=== PATIENT | male | born 1940 | race Caucasian/White ===

== ENCOUNTER 2021-05-07 09:18 | Day surgery (SDC) | payer MEDICARE ==
[~2021-05-07 09:18] MED LIST: ACIT10CA PO; ALLO100 PO; AMLO5 PO; ATEN50 PO; BUME2 PO; CALCPOTTC TOP; CETI5 PO; CLOP75 PO; DABI150C; DABI150C PO; DIGO.125 PO; DILT120 PO; DILT60 PO; DILTIAZEM 24HR240 MG PO; Diovan40 MG PO; ELIQUIS5 MG PO; ESOM20; ETAN50I INJ; FURO40 PO; GLIP5 PO; HYDPAM50 PO; K-Dur 20 meq T20 MEQ PO; LOSA25 PO; MEN PHOR ANTI I TP; METF500 PO; METF500C PO; METO25 PO; METO50ER PO; POTCHL10ER PO; PRED10 PO; SIMV10 PO
== END 2021-05-07 09:45 | disposition home or self-care (01) ==
LOC: ORSCSDS 09:18
DX: K22.70 Barrett's esophagus without dysplasia (principal); Z53.9 Procedure and treatment not carried out, unspecified reason
CPT/HCPCS: J2704; J7120

== ENCOUNTER 2021-05-23 08:57 | Day surgery (SDC) | payer MEDICARE ==
[~2021-05-23] VITALS: Ht 177.8 cm; Wt 105.4 kg
[~2021-05-23 08:57] MED LIST changes: +Crestor20 MG PO; +GALA4 PO; +HYDCHL25 PO; +LANOXIN125 MCG PO; +LOSA50 PO; +OMEP20ER PO; +XARELTO20 MG PO
== END 2021-05-23 11:10 | disposition home or self-care (01) ==
LOC: ORSCSDS 08:57
PROVIDERS: Internal Medicine Gastroenterology
PROC: 0DB78ZX Excision of Stomach, Pylorus, Via Natural or Artificial Opening Endoscopic, Diagnostic (ICD-10-PCS; principal; 2021-05-23 10:30)
PROC: 0DB58ZX Excision of Esophagus, Via Natural or Artificial Opening Endoscopic, Diagnostic (ICD-10-PCS; principal; 2021-05-23 10:30)
DX: K22.70 Barrett's esophagus without dysplasia (principal); C15.5 Malignant neoplasm of lower third of esophagus; R13.14 Dysphagia, pharyngoesophageal phase; Z87.891 Personal history of nicotine dependence; E11.9 Type 2 diabetes mellitus without complications; I10 Essential (primary) hypertension; E78.5 Hyperlipidemia, unspecified; I48.0 Paroxysmal atrial fibrillation; I25.10 Atherosclerotic heart disease of native coronary artery without angina pectoris; F03.90 Unspecified dementia, unspecified severity, without behavioral disturbance, psychotic disturbance, mood disturbance, and anxiety; Z79.899 Other long term (current) drug therapy; Z79.84 Long term (current) use of oral hypoglycemic drugs; G47.33 Obstructive sleep apnea (adult) (pediatric)
CPT/HCPCS: 82947; 88305; 88342; J2704; J7120

== ENCOUNTER 2021-08-08 21:13 | Emergency (ER) | payer MEDICARE ==
[~2021-08-08] VITALS: Ht 177.8 cm; Wt 86.2 kg
[2021-08-08 23:07] LABS: Hematocrit 25.9 % (37.0-53.0); Hemoglobin 8.8 g/dL (13.5-17.5); Mean Corpuscular HGB 31.1 pg (26.0-34.0); Mean Corpuscular Volume 92 fL (80-100); Mean Platelet Volume 9.8 fL (9.1-12.4); NRBC ABSOLUTE 0.06 K/mm3 (0.00-0.02); NRBC Auto 1.8 /100 WBC (0.0-0.2); Platelet Count 135 K/mm3 (150-400); RDW Coefficient Variation 17.3 % (11.7-14.2); RDW Standard Deviation 55.8 fL (35.1-46.3); Red Blood Cell Count 2.83 M/mm3 (4.30-5.90); White Blood Cell Count 3.25 K/mm3 (4.00-11.30)
[2021-08-08 23:34] LABS: Alanine Aminotransfer (ALT/SGP 17 U/L (12-78); Albumin, Blood 2.6 g/dL (3.4-5.0); Albumin/Globulin Ratio 0.7 (0.8-1.8); Alk Phos 62 U/L (50-136); Anion Gap 9 mmol/L (6-16); Aspartate Aminotrans (AST/SGOT 8 U/L (12-37); Bilirubin, Total 0.5 mg/dL (0.1-1.0); Blood Urea Nitrogen 62 mg/dL (8-24); Bun/Creatinine Ratio 48.1 (12.0-20.0); CO2, Blood 22 mmol/L (21-32); Calcium, Blood 9.3 mg/dL (8.5-10.1); Chloride, Blood 105 mmol/L (98-108); Creatinine, Blood 1.29 mg/dL (0.60-1.20); Globulin, Blood 3.8 g/dL (2.2-4.0); Glomerular Filtration Rate 53 (60-); Glucose, Blood 380 mg/dL (70-99); Potassium, Blood 3.4 mmol/L (3.5-5.5); Sodium, Blood 136 mmol/L (136-145); Total Protein, Blood 6.4 g/dL (6.4-8.2); Troponin I <0.015 ng/mL (0.000-0.040)
[2021-08-09 00:16] LABS: BAND PERCENT MAN 37 % (0-8); BASOPHILS PERCENT MAN 0 % (0-2); EOSINOPHILS PERCENT MAN 0 % (0-6); LYMPHOCYTES ABSOLUTE MAN 0.09 K/mm3 (0.84-5.20); LYMPHOCYTES PERCENT MAN 3 % (21-46); METAMYELOCYTE ABSOLUTE MAN 0.09 K/mm3 (0.00-0.00); METAMYELOCYTE PERCENT MAN 3 % (0-0); MONOCYTES ABSOLUTE MAN 0.35 K/mm3 (0.16-1.47); MONOCYTES PERCENT MAN 11 % (4-13); MYELOCYTE ABSOLUTE MAN 0.13 K/mm3 (0.00-0.00); MYELOCYTE PERCENT MAN 4 % (0-0); NEUTROPHILS ABSOLUTE MAN 2.56 K/mm3 (1.96-9.15); SEG NEUTROPHILS PERCENT MAN 42 % (41-73); TOTAL CELLS COUNTED 100
== END 2021-08-09 05:00 | disposition home or self-care (01) ==
LOC: ER 21:13
PROVIDERS: Emergency Medicine
DX: E11.65 Type 2 diabetes mellitus with hyperglycemia (principal); F03.90 Unspecified dementia, unspecified severity, without behavioral disturbance, psychotic disturbance, mood disturbance, and anxiety; E86.0 Dehydration; C15.9 Malignant neoplasm of esophagus, unspecified; I48.91 Unspecified atrial fibrillation; I10 Essential (primary) hypertension; Z79.899 Other long term (current) drug therapy; Z79.84 Long term (current) use of oral hypoglycemic drugs
CPT/HCPCS: 71045; 80053; 80162; 83690; 83880; 84484; 85025; 99285-25; A9270; J7030

== ENCOUNTER 2021-08-16 15:49 | Inpatient (IN) | payer MEDICARE ==
[~2021-08-16] VITALS: Ht 177.8 cm; Wt 104.4 kg
[2021-08-16 16:34] LABS: PCO2 Arterial 40.3 mmHg (35-45); PO2 Arterial 82.1 mmHg (80-100)
[2021-08-16 16:37] LABS: pH Blood Arterial 6.83 (7.35-7.45)
[2021-08-16 16:58] LABS: Hematocrit 22.9 % (37.0-53.0); Hemoglobin 6.9 g/dL (13.5-17.5); Mean Corpuscular HGB 30.8 pg (26.0-34.0); Mean Corpuscular HGB Conc 30.1 g/dL (31.5-36.5); Mean Corpuscular Volume 102 fL (80-100); Mean Platelet Volume 10.5 fL (9.1-12.4); NRBC ABSOLUTE 0.44 K/mm3 (0.00-0.02); NRBC Auto 2.6 /100 WBC (0.0-0.2); Platelet Count 196 K/mm3 (150-400); RDW Coefficient Variation 18.5 % (11.7-14.2); RDW Standard Deviation 66.3 fL (35.1-46.3); Red Blood Cell Count 2.24 M/mm3 (4.30-5.90); White Blood Cell Count 17.25 K/mm3 (4.00-11.30)
[2021-08-16 17:13] LABS: Acetaminophen, Random 9.2 ug/mL (10.0-30.0); CPK Creatine Kinase 264 U/L (39-308); Creatine Kinase MB 9.7 ng/mL (0.0-3.6); Creatine Kinase MB Index 3.7 (0.0-4.0); Ethanol (Alcohol), Blood, Med <3 mg/dL; Salicylate <1.7 mg/dL (2.8-20.0); Troponin I 0.203 ng/mL (0.000-0.040)
[2021-08-16 17:21] LABS: Alanine Aminotransfer (ALT/SGP 50 U/L (12-78); Albumin, Blood 1.9 g/dL (3.4-5.0); Alk Phos 65 U/L (50-136); Anion Gap 24 mmol/L (6-16); Aspartate Aminotrans (AST/SGOT 56 U/L (12-37); Bilirubin, Total 0.4 mg/dL (0.1-1.0); Blood Urea Nitrogen 118 mg/dL (8-24); Bun/Creatinine Ratio 35.2 (12.0-20.0); CO2, Blood 9 mmol/L (21-32); Calcium, Blood 7.6 mg/dL (8.5-10.1); Chloride, Blood 109 mmol/L (98-108); Creatinine, Blood 3.35 mg/dL (0.60-1.20); Glomerular Filtration Rate 18 (60-); Glucose, Blood 554 mg/dL (70-99); Potassium, Blood 4.3 mmol/L (3.5-5.5); Sodium, Blood 142 mmol/L (136-145); Total Protein, Blood 3.9 g/dL (6.4-8.2)
[2021-08-16 17:22] LABS: Appearance, Urine Hazy (Clear); Bilirubin, Urine Neg (Neg); Blood, Urine 4+ (Neg); Color, Urine Yellow (P-Yellow); Glucose Qualitative, Urine 4+ (Neg); Ketones, Urine Neg (Neg); Leukocyte Esterase, Urine Neg (Neg); Nitrite, Urine Neg (Neg); Protein, Urine 3+ (Neg); Urobilinogen, Urine NORM (Normal)
[2021-08-16 17:33] LABS: BAND PERCENT MAN 12 % (0-8); BASOPHILS PERCENT MAN 0 % (0-2); EOSINOPHILS PERCENT MAN 0 % (0-6); LYMPHOCYTES ABSOLUTE MAN 0.17 K/mm3 (0.84-5.20); LYMPHOCYTES PERCENT MAN 1 % (21-46); METAMYELOCYTE ABSOLUTE MAN 0.86 K/mm3 (0.00-0.00); METAMYELOCYTE PERCENT MAN 5 % (0-0); MONOCYTES ABSOLUTE MAN 0.51 K/mm3 (0.16-1.47); MONOCYTES PERCENT MAN 3 % (4-13); MYELOCYTE ABSOLUTE MAN 0.69 K/mm3 (0.00-0.00); MYELOCYTE PERCENT MAN 4 % (0-0); SEG NEUTROPHILS PERCENT MAN 75 % (41-73); TOTAL CELLS COUNTED 100
[2021-08-16 17:40] LABS: Source, Urine Catheter
[2021-08-16 17:43] LABS: Bacteria Few /hpf; Renal Epithelial Rare /hpf (0-Rare); Squamous Epithelial Cells Few /hpf (Few); White Blood Cells, Urine 0-2 /hpf (0-5)
[2021-08-16 17:44] LABS: Granular Casts 0-2 /lpf (0)
--- NOTE | 2021-08-16 18:13 | NUR ---
Patient remains intubated with 8.0 ET and 27 cm at teeth with vent setting of Spon mod PS 5/40/5 and sats 97%. OG in place and is infusing Nephro 1.8 at 20 ml/hr goal and 30 ml/q4 water flushes. 18Fr Gutierrez output was only 100 mleven after Bumex gtt. Rectal tube 800 ml output dark brown stool. PICC line infusing Bumex at 4mg/hr increaed 2nd bag, Heparin 12 units/kg/hr, NS TKO. He continues to weep from groin area and LUE. Continue full turns to get off buttocks. He remaisn out of restraints and no UE movement. Nods yes and no to questions and trackas visually. Temp 99.3
[2021-08-16 18:17] LABS: Influenza A, PCR NEGATIVE (NEGATIVE); Influenza B, PCR NEGATIVE (NEGATIVE); Resp Syncytial Virus, PCR NEGATIVE (NEGATIVE); SARS-Cov-2 (COVID-19) PCR, MMC NEGATIVE (NEGATIVE)
[2021-08-16 19:50] LABS: pH Blood Venous 7.01 (7.34-7.37)
[2021-08-16 19:51] LABS: PO2 Venous 75.7 mmHg (38-42)
[2021-08-16 19:52] LABS: Base Excess Venous -18.4 mmol/L; Bicarbonate Venous 11.1 mmol/L (24.0-30.0)
[2021-08-16 20:54] LABS: Glucose, Blood 663 mg/dL (70-99)
[2021-08-16 23:16] LABS: Base Excess Venous -14.6 mmol/L; Bicarbonate Venous 12.9 mmol/L (24.0-30.0); PCO2 Venous 49.9 mmHg (38-42); PO2 Venous 28.1 mmHg (38-42)
[2021-08-16 23:17] LABS: pH Blood Venous 7.09 (7.34-7.37)
[2021-08-16 23:58] LABS: PCO2 Arterial 34.9 mmHg (35-45); PO2 Arterial 479 mmHg (80-100)
[2021-08-16 23:59] LABS: pH Blood Arterial 7.22 (7.35-7.45)
--- NOTE | 2021-08-17 01:47 | NUR ---
PATIENT TO ROOM AT 2210 PATIENT INTUBATED AND WITHDRAWS TO PAINFUL STIMULI, NO EYE OPENING, UNABLE TO FOLLOW COMMANDS. PATIENT ON VENT AC VC 18/440/7/85% WHEN HE ARRIVED TO THE ROOM, UNABLE TO GET ACCURATE 02 READINGS, VBG DONE AND VENT SETTING ADJUSTED, ABG WAS THEN DONE TO CONFIRM ACCURACY OG VBG, VENT SETTING THEN CHANGED AGAIN PER DOCTORS ORDERS DUE TO ABG RESULTS. VENT SETTINGS CURRENTLY AC VC 18/440/5/55%. RR 30s. EXP WHEEZE HEARD. AMP OF SODIUM BICARB GIVEN DUE TO ABG RESULTS PER HOSPITALIST. HR A.FIB 110-130s. LEVOPHED, VASO, AND CROW INF TO MAINTAIN BP >65. ALBUMIN GIVEN. 1 UNIT PRBCs GIVEN. IO REMOVED. NO OG IN PLACE DT SWELLING AND FAILED ATTEMPT IN ED. CALLED HOSPITALIST WITH [facility] RESULTS OF 408 CALLED TO HOSPITALIST. ORDERS FOR LANTUS. INCREASED FENTANYL DEPORTATION OFFICER TO 50 MCG/HR FOR PATIENT COMFORT. PATIENT SKIN COOL AND MOTTLING IN ALL EXTREMTIES AND UP TO MID CHEST. UPDATED ON PATIENT CONDITION. SEE SHIFT ASSESSMENT FOR MORE INFO.
[2021-08-17 03:54] LABS: Hematocrit 24.8 % (37.0-53.0); Hemoglobin 8.2 g/dL (13.5-17.5); Mean Corpuscular HGB 31.4 pg (26.0-34.0); Mean Corpuscular HGB Conc 33.1 g/dL (31.5-36.5); Mean Platelet Volume 9.3 fL (9.1-12.4); NRBC ABSOLUTE 0.43 K/mm3 (0.00-0.02); NRBC Auto 5.9 /100 WBC (0.0-0.2); Platelet Count 107 K/mm3 (150-400); RDW Coefficient Variation 17.9 % (11.7-14.2); RDW Standard Deviation 60.5 fL (35.1-46.3); Red Blood Cell Count 2.61 M/mm3 (4.30-5.90); White Blood Cell Count 7.34 K/mm3 (4.00-11.30)
[2021-08-17 03:57] LABS: Mean Corpuscular Volume 95 fL (80-100)
[2021-08-17 04:19] LABS: Albumin, Blood 2.6 g/dL (3.4-5.0); Albumin/Globulin Ratio 1.1 (0.8-1.8); Bilirubin, Total 1.9 mg/dL (0.1-1.0); Bun/Creatinine Ratio 36.4 (12.0-20.0); Calcium, Blood 7.4 mg/dL (8.5-10.1); Creatinine, Blood 3.46 mg/dL (0.60-1.20); Globulin, Blood 2.3 g/dL (2.2-4.0); Magnesium, Blood 2.3 mg/dL (1.6-2.4); Potassium, Blood 4.1 mmol/L (3.5-5.5); Total Protein, Blood 4.9 g/dL (6.4-8.2)
[2021-08-17 04:43] LABS: BAND PERCENT MAN 40 % (0-8); BASOPHILS PERCENT MAN 0 % (0-2); EOSINOPHILS PERCENT MAN 0 % (0-6); LYMPHOCYTES ABSOLUTE MAN 0.07 K/mm3 (0.84-5.20); LYMPHOCYTES PERCENT MAN 1 % (21-46); METAMYELOCYTE ABSOLUTE MAN 0.22 K/mm3 (0.00-0.00); METAMYELOCYTE PERCENT MAN 3 % (0-0); MONOCYTES ABSOLUTE MAN 0.14 K/mm3 (0.16-1.47); MONOCYTES PERCENT MAN 2 % (4-13); MYELOCYTE ABSOLUTE MAN 0.29 K/mm3 (0.00-0.00); MYELOCYTE PERCENT MAN 4 % (0-0); SEG NEUTROPHILS PERCENT MAN 50 % (41-73); TOTAL CELLS COUNTED 100
[2021-08-17 04:48] LABS: PO2 Arterial 64.1 mmHg (80-100); pH Blood Arterial 7.34 (7.35-7.45)
--- NOTE | 2021-08-17 06:47 | NUR ---
SHIFT SUMMARY PATIENT REMAINS INTUBATED AND WITHDRAWING TO PAINFUL STIMULI. MOVES ALL EXTREMETIES. FENTANYL URGENT CARE PHYSICIAN ASSISTANT INF 50 MCG/HR, AND PRN ATIVAN. UNABLE TO OBTAIN PROPER 02 SAT READING, ABG DONE FOR VENT TITRATION. VENT 18/440/5/55%, LUNGS CLEAR TO DIMINISHED. HR A. FIB 120s-130. LEVOPHED, VASO, AND CROW INF TO MAINTAIN MAP GREATER THAN 65. PATIENT IS MOTTLED IN ALL EXTREMETIES UP TO MID CHEST. CALLED [facility] TO HOSPITALIST AND ORDERS FOR LANTUS. PATIENT BEING KEPT UNDER 36 DEGREES CELCIUS. ARROYO DRAINING TO GRAVITY. BILATERAL WRIST RESTRAINTS IN PLACE. TURNED Q2 HOURS.
--- NOTE | 2021-08-17 08:00 | NUR ---
INITIAL ASSESSMENT PATIENT INTUBATED AND ON FENTANYL DRIP WTIH PRN ATIVAN. PATIENT RESPONDS TO NOXIOUS STIMULI. PATIENT ABLE TO MOVE ALL EXTREMITIES. PATIENT DOES NOT FOLLOW ANY COMMANDS. SCLERAL EDEMA NOTED. PATIENT AFEBRILE. NO SIGNS OF PAIN NOTED AT THIS TIME. PATIENT ON AC 18, TV 440, PEEP 5 AND 55% FIO2. RHONCHI NOTED IN UPPER LOBES WITH INSPIRATION. LOWER LOBES DIMINISHED. MODERATE AMOUNT OF THIN, YELLOW/ PHILLIP SECRETIONS SUCTIONED FROM ETT. PATIENT IN A. FIB, HR LOW 100S TO 130S. SBP IN THE LOW 100S. PATIENT ON LEVOPHED AT 20 MCG/ MINUTE, VASOPRESSIN AT 0.04 UNITS/ MINUTE, NEOSYNEPHRINE AT 20 MCG/ MINUTE. SCDS IN PLACE. 2+ EDEMA NOTED TO BLES. PATIENT MOTTLED FROM TOES UP TO MID THIGHS. PATIENT'S TOES, BALLS OF FEET AND HEELS ARE DARK PURPLE IN COLOR. RADIAL AND TIBIAL PULSES DOPPLERED. PEDAL PULSES ABSENT. ABD HYPOACTIVE. DATE OF LAST BM UNKNOWN. PATIENT NPO. ARROYO IN PLACE DRAINING DARK YELLOW COLORED URINE WITH SEDIMENT NOTED. SCATTERED BRUISES NOTED. SKIN COOL. GROIN/ REBECCA FOLDS REDDENED, MOIST AND FOUL SMELLING. . NS INFUSING AT 150 MLS/ HOUR. BED LOW. WILL CONTINUE TO MONITOR PATIENT FREQUENTLY THROUGHOUT SHIFT.
--- NOTE | 2021-08-17 10:04 | NUR ---
DR. FREY IN TO SEE PATIENT AT 0920. UPDATED ON PATIENT STATUS. INFORMED THAT PATIENT ON LEVOPHED, VASO AND CROW. INFORMED THAT HAVE BEEN ABLE TO TITRATE LEVOPHED DOWN SLIGHTLY. INFORMED THAT O2 PROBE NOT READING AND THAT ABGS HAVE BEEN OBTAINED BUT THAT NO MORE ARE ORDERED. INFORMED THAT PATIENT HAD 150 MLS OF URINE OUT ON CLAY MACHINE OPERATOR. INFORMED THAT KIDNEY LABS HIGH. DOCTOR OBSERVING MOTTLED LEGS AND DARK PURPLE TOES AND BALLS OF FEET ON PATIENT. DR. FREY INFORMED OF HIGH BLOOD SUGARS AND THAT LONG ACTING INSULIN STARTED. INFORMED THAT NO OG IN PLACE WAS UNABLE TO BE PLACED BY STAFF DUE TO HX OF ESOPHAGEAL CANCER. INFORMED THAT PATIENT ON FENTANYL DRIP AND HAS ATIVAN PUSHES IF NEEDED; NO PROPOFOL ORDERED. PATIENT'S ARRIVED TO ROOM AT 0942. DR. FREY SPEAKING WITH PATIENT AND PALLIATIVE CARE TO SPEAK WITH DR. FREY AND PATIENT'S AFTERWARD.
[2021-08-17 10:59] LABS: PCO2 Arterial 30.5 mmHg (35-45); PO2 Arterial 84.5 mmHg (80-100); pH Blood Arterial 7.33 (7.35-7.45)
--- NOTE | 2021-08-17 13:00 | NUR ---
PATIENT AFEBRILE. HR IN THE LOW 100S. SBP 90S TO LOW 100S. CROW SB. VASOPRESSIN UNCHANGED. LEVOPHED AT 14 MCG/ MINUTE. NS DECREASED FROM 150 MLS/ HOUR TO TKO. PROPOFOL INFUSING AT 15 MCG/ KG/ MINUTE. FIO2 DECREASED FROM 55 TO 45%. NO OTHER ACUTE CHANGES TO NOTE ON AT THIS TIME. WILL CONTINUE TO MONITOR.
--- NOTE | 2021-08-17 16:03 | NUR ---
Review of pt with physician and nursing. Met with for theraputic visit after speaking with physician. She is showing significant caregiver stress. States he has been declining and dependent in all his adl's more of a fall risk. She has had to have her son come and help with lifting and care. He has not been eating and struggling with comfort. She had many questions about prognosis and what is going on with him. Slowly explained care in simple terms. She asked about porgnsois and asked her what she thought. She demonstrates understanding that he is at the end. We discussed giving him some time and if he declines further or does not repond freeing him from the machines and allowing an natural peacful passing. she understands that is the probable path. She is going to go home and try to rest. She stated the family pets are very distraught. we discussed her shelton and offered blessings and prayer. pt kps score is 20%
--- NOTE | 2021-08-17 16:30 | NUR ---
PATIENT AFEBRILE. HR LOW 100S TO 120S. SBP 80S TO LOW 100S. DOBHOFF PLACED BY CHARGE NURSE AND PIVOT 1.5 TF STARTED AT 25 MLS/ HOUR WITH GOAL RATE OF 45 MLS/ HOUR. NO OTHER ACUTE CHANGES TO NOTE ON AT THIS TIME.
--- NOTE | 2021-08-17 19:21 | NUR ---
SHIFT SUMMARY PATIENT REMAINED INTUBATED. PATIENT PLACED ON PROPOFOL THIS SHIFT. PATIENT REMAINED RESPONDING TO PAINFUL STIMULI. PATIENT REMAINED AFEBRILE. VENT SETTINGS 18, TV 440, PEEP 5 AND FIO2 DECREASED FROM 55 TO 45% THIS SHIFT. PATIENT REMAINED IN A. FIB, HR LOW 100S TO 130S. SBP RANGED FROM 80S TO LOW 100S. LEVOPHED DECREASED FROM 23 TO 23 MCG/ MINUTE, VASOPRESSIN REMAINS AT 0.04 UNITS/ MINUTE, AND NEOSYNEPHRINE PLACED ON SB. FEET REMAINED CYANOTIC. DR. FREY AWARE AND HAS SEEN. SCDS PLACED THIS SHIFT. NO BM THIS SHIFT. DOBHOFF INSERTED AND PIVOT 1.5 TF STARTED AT 25 MLS/ HOUR WITH GOAL RATE OF 45 MLS/ HOUR. WATER FLUSH AT 30 MLS Q4H. BLOOD SUGARS 200S AND 300S. SLIDING SCALE INSULIN INCREASED FROM LOW TO HIGH. ARROYO DRAINED 425 MLS OF DARK YELLOW COLORED URINE WITH SEDIMENT NOTED. PATIENT REPOSITIONED THROUGHOUT SHIFT. HEEL PROTECTORS PLACED THIS SHIFT. GROIN/ REBECCA AREA CLEANED, DRIED AND POWDER APPLIED. NS AT 150 MLS/ HOUR DECREASED TO TKO. 5 MG BUMEX IV GIVEN THIS SHIFT. PATIENT APPEARS COMFORTABLE AT THIS TIME. BED LOW. REPORT HAS BEEN GIVEN TO ASSUMING CABLE TENDER NURSE.
[2021-08-17 22:10] LABS: Vancomycin, Random 14.9 ug/mL
--- NOTE | 2021-08-17 23:00 | NUR ---
ASSUMED CARE AT 1900 PT LAYING IN BED INTUBATED WITH VENT SETTINGS AC 18/440/5/45%; SMALL AMOUNT OF THICK YELLOW SECREATIONS NOTED FROM ETT. PT SEDATED WITH PROPOFOL INFUSING AT 15MCG/KG/MIN; REACTIVE TO PAINFUL AND NOXIOUS STIMULI; WEAK GAG AND COUGH NOTED. [employer] CORE TEMP <37 DEGREES CELCIUS; FAN AND ICE PACKS PLACED. AFIB NOTED WITH HR 130-140'S. SBP 100-110; LEVOPHED INFUSING AT 12MCG/MIN; VASOPRESSIN INFUSING AT 0.04UNITS/MIN. PIVOT INFUSING VIA DOBHOFF AT 25ML/HR; PLAN TO INCREASE TO GOAL AT 0000. ARROYO IN PLACE AND DRAINING TO GRAVITY. MOTTLING NOTED TO BLE. SEE SHIFT ASSESSMENT FOR FULL ASSESSMENT.
[2021-08-18 04:16] LABS: Hematocrit 24.2 % (37.0-53.0); Hemoglobin 8.3 g/dL (13.5-17.5); Mean Corpuscular HGB 31.9 pg (26.0-34.0); Mean Corpuscular HGB Conc 34.3 g/dL (31.5-36.5); Mean Corpuscular Volume 93 fL (80-100); Mean Platelet Volume 9.5 fL (9.1-12.4); NRBC ABSOLUTE 0.19 K/mm3 (0.00-0.02); NRBC Auto 1.5 /100 WBC (0.0-0.2); Platelet Count 80 K/mm3 (150-400); RDW Coefficient Variation 18.6 % (11.7-14.2); RDW Standard Deviation 60.5 fL (35.1-46.3)
[2021-08-18 04:37] LABS: Albumin, Blood 2.2 g/dL (3.4-5.0); Albumin/Globulin Ratio 0.8 (0.8-1.8); Bilirubin, Total 1.1 mg/dL (0.1-1.0); Bun/Creatinine Ratio 36.5 (12.0-20.0); Calcium, Blood 7.5 mg/dL (8.5-10.1); Creatinine, Blood 3.18 mg/dL (0.60-1.20); Globulin, Blood 2.9 g/dL (2.2-4.0); Magnesium, Blood 2.1 mg/dL (1.6-2.4); Phosphorus, Blood 5.7 mg/dL (2.5-4.9); Potassium, Blood 3.6 mmol/L (3.5-5.5); Total Protein, Blood 5.1 g/dL (6.4-8.2)
[2021-08-18 04:53] LABS: BAND PERCENT MAN 30 % (0-8); BASOPHILS PERCENT MAN 0 % (0-2); EOSINOPHILS PERCENT MAN 0 % (0-6); LYMPHOCYTES ABSOLUTE MAN 0.12 K/mm3 (0.84-5.20); LYMPHOCYTES PERCENT MAN 1 % (21-46); METAMYELOCYTE ABSOLUTE MAN 0.12 K/mm3 (0.00-0.00); METAMYELOCYTE PERCENT MAN 1 % (0-0); MONOCYTES ABSOLUTE MAN 0.38 K/mm3 (0.16-1.47); MONOCYTES PERCENT MAN 3 % (4-13); NEUTROPHILS ABSOLUTE MAN 12.06 K/mm3 (1.96-9.15); SEG NEUTROPHILS PERCENT MAN 65 % (41-73); TOTAL CELLS COUNTED 100
--- NOTE | 2021-08-18 06:41 | NUR ---
END OF SHIFT SUMMARY NO ACUTE EVENTS OVERNIGHT. PT CONT TO BE INTUBATED WITH VENT SETTINGS AC/VC 18/440/5/45%. PT REACTIVE TO NOXIOUS STIMULI BUT DECREASE RESPONSE TO PAINFUL STIMULI; PROPOFOL INFUSING AT 15MCG/KG/MIN. TARGET TEMP OF <37 DEGREES NOTED. AFIB WITH HR 120-140'S. SBP 100-120; LEVOPHED INFUSING AT 8MCG/MIN; VASOPRESSIN INFUSING AT 0.04UNITS/MIN. PIVOT INFUSING AT GOAL. ARROYO IN PLACE AND DRAINING TO GRAVITY; 1500ML OF OUTPUT. MOTTLING TO BLE AND BUE NOTED, TOES MORE PURPLE THAN PREVIOUSLY. CENTRAL LINE TO RT IJ INFUSING. WILL REPORT TO AM RN WHEN AVAILABLE. WILL REPORT TO AM RN WHEN AVAILABLE.
--- NOTE | 2021-08-18 08:00 | NUR ---
INITIAL ASSESSMENT PATIENT INTUBATED AND SEDATED. PATIENT NOT MOVING EXTREMITIES BUT IS GRIMACING AND BITING ON BITE BLOCK TO NOXIOUS STIMULI. SCLERAL EDEMA NOTED. POSITIVE BABINKSI NOTED. PATIENT GIVEN PRN FENTANYL FOR SIGNS OF DISCOMFORT; PATIENT DOES APPEAR LESS AGITATED. TEMP OF 37.1 DEGREES CELCIUS THIS AM; FAN APPLIED AND BLANKET REMOVED. PATIENT ON ACVC 18, TV 440, PEEP 5 AND 40% FIO2. MODERATE AMOUNT OF THIN, PHILLIP SECRETIONS BEING SUCTIONED FROM ETT. LUNGS CLEAR IN UPPER LOBES AND DIMINISHED IN LOWER LOBES. PATIENT IN A. FIB, HR 1-TEENS TO 130S. SBP 80S TO 1-TEENS. PATIENT ON LEVOPHED AT 8 MCG/ MINUTE AND ON VASOPRESSIN AT 0.04 UNITS/ MINUTE. SCDS IN PLACE. 2+ EDEMA NOTED TO BLES. CAP REFILL GREATER THAN 3 SECONDS IN FEET. RADIAL PULSES 1+, TIBIAL AND R PEDAL PULSES DOPPLERED, L PEDAL ABSENT. FEET COOL AND DARK PURPLE IN COLOR TO TOES, BALL OF FEET AND HEELS. HYPOACTIVE BS NOTED. DATE OF LAST BM UNKNOWN. DOBHOFF IN PLACE AT 65 CM AT NARE AND PIVOT 1.5 TF INFUSING AT GOAL RATE OF 45 MLS/ HOUR WITH 30 ML WATER FLUSH Q4H. ARROYO IN PLACE DRAINING YELLOW COLORED URINE. SKIN COOL AND PALE. SCATTERED BRUISES NOTED. SKIN MOTTLED UP TO MID THIGHS. NS TKO. PROPOFOL AT 15 MCG/ KG/ MINUTE. BED LOW. WILL CONTINUE TO MONITOR PATIENT FREQUENTLY THROUGHOUT SHIFT.
--- NOTE | 2021-08-18 09:52 | NUR ---
DR. FREY UPDATED ON PATIENT STATUS. INFORMED THAT LEVO DOWN TO 8 MCG/MINUTE, THAT HR 130S AND UP TO 150S ON ELEMENT BURNER. INFORMED THAT PRN FENTANYL GIVEN THIS AM FOR SIGNS OF DISCOMFORT. INFORMED THAT STATED PATIENT COMPLAINED OF FREQUENT EPIGASTRIC PAIN FROM CHEMO TREATMENT BEFORE COMING TO HOSPITAL. INFORMED THAT TOES AND FEET DARK PURPLE IN COLOR. INFORMED THAT WBCS INCREASING. ORDER RECEIVED TO PERFORM SEDATION VACATION. NO OTHER ORDERS OBTAINED AT THIS TIME.
--- NOTE | 2021-08-18 10:56 | NUR ---
DR. FREY INFORMED THAT PATIENT HAS BEEN ON SEDATION VACATION FOR MORE THAN AN HOUR AND IS RESPONDING TO PAINFUL STIMULI BUT IS NOT OPENING EYES OR FOLLOWING ANY COMMANDS. INFORMED THAT HR UP TO THE 150S. ORDERED TO PLACE BACK ON PROPOFOL. JUST ARRIVED. PALLIATIVE CARE NURSE IN WITH .
--- NOTE | 2021-08-18 13:00 | NUR ---
PATIENT HAS TEMP OF 37.4 DEGREES CELCIUS. COLD, WET TOWEL PLACED ON TRUNK. PATIENT MOVING LEGS AND GRIMACING TO NOXIOUS STIMULI. HR 120S TO 130S. SBP LOW 100S TO 120S. LEVOPHED AT 8 MCG/ MINUTE. FIO2 DECREASED FROM 40 TO 35%. BLOOD SUGAR 248; COVERAGE GIVEN. NO OTHER ACUTE CHANGES TO NOTE ON AT THIS TIME. WILL CONTINUE TO MONITOR.
--- NOTE | 2021-08-18 16:30 | NUR ---
PATIENT AFEBRILE. HR 90S TO LOW 100S. SBP IN THE LOW 100S. LEVOPHED AT 8 MCG/ MINUTE. NO OTHER ACUTE CHANGES TO NOTE ON AT THIS TIME. WILL CONTINUE TO MONITOR.
--- NOTE | 2021-08-18 19:15 | NUR ---
ASSUMPTION OF CARE REPORT GIVEN BY EASTON GLASER. PT IS INTUBATED AND SEDATED ON PROPOFOL. LEVOPHED AND VASOPRESSIN INFUSING TO MAINTAIN MAP>60 TO RIGHT IJ CVL. AFIB ON THE MONITOR. DOBHOFF INTACT AND PATENT WITH TUBE FEEDING INFUSING AT GOAL. ARROYO CATHETER INTACT PATENT AND DRAINING BELOW THE LEVEL OF THE BLADDER. NO S/S OF ACUTE DISTRESS NOTED AT TIME OF ASSUMPTION OF CARE.
--- NOTE | 2021-08-18 19:16 | NUR ---
SHIFT SUMMARY PATIENT REMAINED INTUBATED AND SEDATED. PATIENT DID HAVE SEDATION VACATION THIS AM. PATIENT REMAINED RESPONDING TO NOXIOUS STIMULI WHEN BOTH ON AND OFF SEDATION. ONLY CHANGE WHEN PATIENT ON SEDATION VACATION IS THAT PATIENT WOULD MOVE TOES TO PAIN. PATIENT HAD TMAX OF 99.3 DEGREES FAHRENHEIT THIS SHIFT. PATIENT GIVEN TYLENOL AND APPLIED WET, COLD TOWEL TO TRUNK OF BODY. PATIENT GIVEN PRN FENTANYL FOR SIGNS OF PAIN/ DISCOMFORT. PATIENT REMAINED ON AC 18, TV 440, PEEP 5 AND FIO2 DECREASED TO 35%. PATIENT REMAINED IN A. FIB, HR 90S TO 140S. SBP 80S TO 120S. NO BM THIS SHIFT. TF REMAINED AT GOAL RATE. ARROYO DRAINED 2250 MLS OF YELLOW COLORED URINE. NO CHANGE TO SKIN NOTED. PROPOFOL AT 15 MCG/ KG/ MINUTE. LEVOPHED RANGED FROM 4 TO 10 AND CURRENTLY AT 4 MCG/ MINUTE. VASOPRESSIN REMAINED AT 0.04 UNITS/ MINUTE. NS TKO. HEAD CT PERFORMED THIS SHIFT. LONG ACTING INSULIN INCREASED FOR BLOOD SUGARS MID 200S TO 300S. PATIENT'S CAME IN TO VISIT TWICE THIS SHIFT. BOTH PC AND DR. FREY SPOKE WITH . PATIENT APPEARS WITHOUT PAIN AT THIS TIME. BED LOW. REPORT GIVEN TO THE [facility] FLOORING MACHINE OPERATOR NURSE.
[2021-08-19 02:46] LABS: Hematocrit 22.2 % (37.0-53.0); Hemoglobin 7.6 g/dL (13.5-17.5); Mean Corpuscular HGB 31.8 pg (26.0-34.0); Mean Corpuscular HGB Conc 34.2 g/dL (31.5-36.5); Mean Corpuscular Volume 93 fL (80-100); Mean Platelet Volume 10.6 fL (9.1-12.4); NRBC ABSOLUTE 0.11 K/mm3 (0.00-0.02); Platelet Count 67 K/mm3 (150-400); RDW Coefficient Variation 18.8 % (11.7-14.2); RDW Standard Deviation 62.4 fL (35.1-46.3); Red Blood Cell Count 2.39 M/mm3 (4.30-5.90); White Blood Cell Count 10.48 K/mm3 (4.00-11.30)
[2021-08-19 03:00] LABS: Vancomycin, Random 20.9 ug/mL
[2021-08-19 03:06] LABS: Bun/Creatinine Ratio 39.4 (12.0-20.0); Calcium, Blood 7.4 mg/dL (8.5-10.1); Creatinine, Blood 2.89 mg/dL (0.60-1.20); Potassium, Blood 2.7 mmol/L (3.5-5.5)
[2021-08-19 03:41] LABS: BAND PERCENT MAN 30 % (0-8); BASOPHILS PERCENT MAN 0 % (0-2); EOSINOPHILS PERCENT MAN 0 % (0-6); METAMYELOCYTE PERCENT MAN 2 % (0-0); MONOCYTES PERCENT MAN 2 % (4-13); NEUTROPHILS ABSOLUTE MAN 10.06 K/mm3 (1.96-9.15); SEG NEUTROPHILS PERCENT MAN 66 % (41-73); TOTAL CELLS COUNTED 100
--- NOTE | 2021-08-19 04:21 | NUR ---
SPOKE TO DR CHAN REGARDING POTASSIUM AND HEMOGLOBIN/HEMATOCRIT. ORDERS GIVEN TO TREAT POTASSIUM, NO ORDERS FOR H&H AT THIS TIME.
--- NOTE | 2021-08-19 06:13 | NUR ---
SHIFT SUMMERY- PT HAS HAD NO ACUTE CHANGES OVERNIGHT. SEE ASSESSMENTS FOR DETAILS.
--- NOTE | 2021-08-19 09:10 | NUR ---
AM NOTE... ASSUMED CARE OF PT AT 0700, THE PT IS INTUBATED AND SEDATED, THE PROPOFOL IS RUNNING AT 20MCG, VENT SETTINGS ARE AC/VC+ 18/440/5/30% WITH O2 SATS >90%. L/S CLEAR IN THE UPPER LOBES DIM IN THE BASES. THE PT IS IN AFIB IN THE 100'S-120'S, THE PT IS ON LEVOPHED AT 5MCG/MIN AND VASOPRESSIN AT 0.04UNITS/HR WITH MAPS >65. THE PT HAS 2+ EDEMA TO HIS BLE, DEPENDENT EDEMA TO HIS BUE. BT PRESENT AND HYPOACTIVE,ABD IS SOFT TO PALP. THE PT'S SCROTUM IS NOTED TO HAVE A BRIUSED AREA TO THE FRONT. THE LEFT GROIN AREA IS NOTED TO HAVE A FIRM BULGE, DR. BOYCE AWARE. THE PT'S TEMP ARROYO IS PATENT AND DRAINING TO GRAVITY, THE PTS TEM IS 37.1C. THE PROPOFOL AND VASOPRESSIN WERE PLACED ON STAND BY. THE PT IS UNRESPONSIVE, WITHDRAWS FROM PAIN AND GRIMACES BUT DOES NOT FOLLOW ANY COMMANDS AT 0840 THE PT WAS SWITCHED FROM AC/VC+ TO SPONTAINIOUS AT 8/5 AND 30% THE PT SEEMS TO BE TOLERATING THIS WELL. WILL CONTINUE TO MONITOR.
--- NOTE | 2021-08-19 10:34 | NUR ---
PT UPDATE.... THE PT WAS MAKING PURPOSEFUL MOVEMENTS WITH HIS ARMS TOWARDS THE ET TUBE. HE WAS NOT FOLLOWING COMMANDS OR OPENING HIS EYES AT THIS TIME. THE PT WAS TURNED AT 1000, AFTER THE PT WAS TURNED HIS O2 SATS STARTED TO DROP, DR. BOYCE AT THE BEDSIDE TO ASSESS THE PT, THE PT WAS SWITCHED BACK FROM PS OF 8/5 AND 30% TO AC/PC:12/5/30% WITH O2 SATS >90%. THE PROPOFOL WAS TURNED BACK ON TO 20MCG AT THIS TIME. WILL CONTINUE TO MONITOR.
--- NOTE | 2021-08-19 19:04 | NUR ---
SHFIT SUMMARY.... NO ACUTE NEGATIVE CHANGES NOTED THIS SHIFT. THE PT CONTINUES ON LEVOPHED AT 7MCG/MIN, THE VASOPRESSIN HAS BEEN OFF MOST OF THIS SHIFT. THE PT'S TUBE FEEDS WERE INCREASED TO 55MLS/HR PER PROVIDER. THE PT DID NOT HAVE A BM THIS SHIFT. THE PT'S ARROYO IS PATENT AND DRAINING TO GRAVITY. THE PT'S WAS AT THE BEDSIDE DURING VISITING HOURS. WILL CONTINUE TO MONITOR.
--- NOTE | 2021-08-19 19:15 | NUR ---
Assumed care. Report received from ciro GLASER. Pt in bed, sedated and ventilated via ETT. Vent settings: AC/PC 18, 14/5, 30%. Dobhoff in place, 67 at nares. TF running Pivot 1.5 at 55 ml/hr. PT has R/IJ central line in place. IV pumps running: levophed 7 mcg/min, propofol 30 mcg/kg/min, NS 10 ml/hr. Gutierrez catheter in place. SWB restraints in place. VS stable, no acute needs noted at this time. Will continue to monitor.
[2021-08-20 03:59] LABS: Hematocrit 22.7 % (37.0-53.0); Hemoglobin 7.6 g/dL (13.5-17.5); Mean Corpuscular HGB 31.1 pg (26.0-34.0); Mean Corpuscular HGB Conc 33.5 g/dL (31.5-36.5); Mean Corpuscular Volume 93 fL (80-100); Mean Platelet Volume 11.1 fL (9.1-12.4); NRBC ABSOLUTE 0.11 K/mm3 (0.00-0.02); NRBC Auto 1.4 /100 WBC (0.0-0.2); Platelet Count 60 K/mm3 (150-400); RDW Coefficient Variation 19.7 % (11.7-14.2); RDW Standard Deviation 64.5 fL (35.1-46.3); Red Blood Cell Count 2.44 M/mm3 (4.30-5.90); White Blood Cell Count 8.03 K/mm3 (4.00-11.30)
[2021-08-20 04:13] LABS: Bun/Creatinine Ratio 43.6 (12.0-20.0); Calcium, Blood 7.7 mg/dL (8.5-10.1); Creatinine, Blood 2.57 mg/dL (0.60-1.20); Magnesium, Blood 2.1 mg/dL (1.6-2.4); Potassium, Blood 2.9 mmol/L (3.5-5.5)
[2021-08-20 04:15] LABS: Vancomycin, Random 22.8 ug/mL
[2021-08-20 04:48] LABS: BAND PERCENT MAN 21 % (0-8); BASOPHILS PERCENT MAN 0 % (0-2); EOSINOPHILS PERCENT MAN 0 % (0-6); MONOCYTES ABSOLUTE MAN 0.32 K/mm3 (0.16-1.47); MONOCYTES PERCENT MAN 4 % (4-13); SEG NEUTROPHILS PERCENT MAN 75 % (41-73); TOTAL CELLS COUNTED 100
--- NOTE | 2021-08-20 06:28 | NUR ---
Shift summary. Pt continues in bed, sedated and ventilated. Vent settings now AC/VC 18/440/5/30%. Dobhoff in place, TF running at 55 ml/hr. R/IJ central line in place, IV pump settings: Levophed 9 mcg/min, Propofol 35 mcg/kg/min, NS 10 ml/hr, Potassium replacement running currently at 25 ml/hr. Gutierrez catheter in place, 1050 out this shift. VS stable throughout shift, see shift assessment for further details. Will continue to monitor and report off to dayshift RN.
--- NOTE | 2021-08-20 08:31 | NUR ---
AM NOTE... ASSUMED CARE OF PT AT 0700, THE PT IS INTUBATED AND SEDATED ON PROPOFOL AT 35MCG/MIN. THE PT'S VENT SETTINGS ON THIS ASSESSMENT ARE AC/VC:18/440/5/30% WITH O2 SATS >95%. L/S COARSE WITH SCATTERED RHONCHI THAT IMPROVE WITH SUCTIONING. THE PT'S ET TUBE IS 7.5 AND 25 AT THE GUMS. THE PT IS IN AFIB W/RVR IN THE 120'S-140'S, THE PT IS ON LEVOPHED AT 9MCG/MIN TO KEEP MAPS >65. THE PT HAS 2+ EDEMA TO HIS BLE, DEPENDENT EDEMA NOTED TO HIS BUE. PULSES TO THE BLE FOUND WITH DOPPLER, BT PRESENT AND VERY HYPOACTIVE, DOBHOFF IN PLACE WITH MARKING AT 67. TUBE FEEDS RUNNING AT GOAL OF 55MLS/HR. THE PT HAS A VERY LARGE INGUINAL HERNIA NOTED, THE LEFT SIDE OF THE SCROTAL SACK IS FRIM AND ENLARGED. THE PT HAS NOT HAD A BM SINCE PRIOR TO ADMIT. BOWEL CARE STARTED. AT 0730 THE PT'S PROPOFOL WAS STOPPED TO DO A SEDATION VACATION, AT 0807 THE PT WAS SWITCHED FROM AC/VC TO SPONTAINIOUS AT 7/5 AND 30% THE PT HAS BEEN TOLERATING THIS WELL SO FAR. WILL CONTINUE TO MONITOR.
[2021-08-20 14:20] LABS: Albumin, Blood 1.5 g/dL (3.4-5.0); Albumin/Globulin Ratio 0.6 (0.8-1.8); Bilirubin, Total 0.6 mg/dL (0.1-1.0); Bun/Creatinine Ratio 45.5 (12.0-20.0); Calcium, Blood 7.3 mg/dL (8.5-10.1); Creatinine, Blood 2.46 mg/dL (0.60-1.20); Globulin, Blood 2.7 g/dL (2.2-4.0); Potassium, Blood 3.3 mmol/L (3.5-5.5); Total Protein, Blood 4.2 g/dL (6.4-8.2)
--- NOTE | 2021-08-20 18:13 | NUR ---
SHIFT SUMMARY.... NO ACUTE NEGATIVE CHANGES NOTED THIS SHIFT, THE PT'S L/S HAVE IMPROVED TO CLEAR T/O DIM IN THE BASES, A MODERATE AMOUNT OF THICK PHILLIP/PINKISH SECRETIONS SUCTIONED VIA ET TUBE. THE PT'S PROPOFOL WAS OFF A LITTLE OVER 4 HOURS THIS SHIFT THE PT WAS ON PS: 5/5 AND 30% WITH O2 SATS >90%, THE PT DID NOT WAKE UP AT ALL, HE DID NOT MOVE HIS ARMS OR LEGS IN ANY WAY DURING THIS TIME HE WAS NOT SEDATED, HE WOULD WEAKLY PULL AWAY FROM PAINFUL STIMULI OR GRIMACE AT ORAL CARE BUT THAT WAS ALL. THE PT WAS GIVEN A SUPPOSITORY AND A MINERAL OIL ENEMA BUT STILL HAS NOT HAD A BM. AN ABD XRAY WAS TAKE TO R/O POSSIBLE OBSTRUCTION, THIS WAS NEGATIVE PER THE REPORT. THE PT'S LEVOPHED WAS TITRATED DOWN TO 2MCG/MIN WITH MAPS >60. WILL CONTINUE TO MONITOR UNTIL REPORT IS GIVEN TO ONCOMING RN.
--- NOTE | 2021-08-20 19:19 | NUR ---
Assumed care. Report received from ciro GLASER. Pt in bed, sedated and ventilated via ETT. Vent settings: AC/VC+ 18/440/5/30%. Dobhoff in place, TF running at 45 ml/hr. R/IJ central line in place, IV in R/arm. IV pump settings: Levophed 5 mcg/min, Propofol 20 mcg/kg/min, NS 10 ml/hr x2. Gutierrez catheter in place. SWB restraints in place. VS stable, no acute needs noted at this time, will continue to monitor.
[2021-08-20 23:16] LABS: Vancomycin, Random 19.9 ug/mL
[2021-08-21 04:47] LABS: Hematocrit 21.9 % (37.0-53.0); Hemoglobin 7.1 g/dL (13.5-17.5); Mean Corpuscular HGB 30.9 pg (26.0-34.0); Mean Corpuscular HGB Conc 32.4 g/dL (31.5-36.5); Mean Corpuscular Volume 95 fL (80-100); Mean Platelet Volume 12.7 fL (9.1-12.4); NRBC ABSOLUTE 0.15 K/mm3 (0.00-0.02); NRBC Auto 2.4 /100 WBC (0.0-0.2); Platelet Count 55 K/mm3 (150-400); RDW Coefficient Variation 20.5 % (11.7-14.2); RDW Standard Deviation 68.8 fL (35.1-46.3); White Blood Cell Count 6.19 K/mm3 (4.00-11.30)
[2021-08-21 04:59] LABS: Bun/Creatinine Ratio 50.9 (12.0-20.0); Creatinine, Blood 2.3 mg/dL (0.60-1.20); Magnesium, Blood 2.1 mg/dL (1.6-2.4); Potassium, Blood 3.2 mmol/L (3.5-5.5)
[2021-08-21 05:19] LABS: BAND PERCENT MAN 24 % (0-8); BASOPHILS PERCENT MAN 0 % (0-2); EOSINOPHILS ABSOLUTE MAN 0.06 K/mm3 (0.00-0.68); EOSINOPHILS PERCENT MAN 1 % (0-6); LYMPHOCYTES ABSOLUTE MAN 0.24 K/mm3 (0.84-5.20); LYMPHOCYTES PERCENT MAN 4 % (21-46); METAMYELOCYTE ABSOLUTE MAN 0.06 K/mm3 (0.00-0.00); METAMYELOCYTE PERCENT MAN 1 % (0-0); MONOCYTES ABSOLUTE MAN 0.43 K/mm3 (0.16-1.47); MONOCYTES PERCENT MAN 7 % (4-13); MYELOCYTE ABSOLUTE MAN 0.18 K/mm3 (0.00-0.00); MYELOCYTE PERCENT MAN 3 % (0-0); NEUTROPHILS ABSOLUTE MAN 5.19 K/mm3 (1.96-9.15); SEG NEUTROPHILS PERCENT MAN 60 % (41-73); TOTAL CELLS COUNTED 100
--- NOTE | 2021-08-21 06:15 | NUR ---
Shift summary. Pt continues in bed, on ventilator. Vent settings unchanged this shift: AC/VC+ 18/440/5/30%. Dobhoff in place, TF at 45 ml/hr. R/IJ central line & IV access remain in place, Levophed running at 7 mcg/min, Propofol at 20 mcg/kg/min, NS 10 ml/hr. Gutierrez catheter in place, 1000 mls out this shift. SWB restraints in place. VS stable throughout shift. See shift assessment for further details. Will continue to monitor and report off to dayshift RN.
--- NOTE | 2021-08-21 08:00 | NUR ---
ASSUMED CARE BEDSIDE REPORT FROM JESUS GLASER AT 0700. PT INTUBATED AND SEDATED. VENT SETTINGS AC/VC+ 18/440/0.68/5/30%. LUNGS CLEAR. SCANT THIN SECRETIONS THROUGH ETT. COUGH/SWALLOW REFLEX PRESENT. POSTIONAL CUFF LEAK. TACHYPENIC. PROPOFOL GTT AT 20 MCG/KG/MIN. SEDATION VACATION COMPLETED THIS SHIFT, APPROX 35 MINS. PT DOES NOT FOLLOW COMMANDS. GRIMACES c CARE. TACHYCARDIAC AND TACHYPENIC. WITHDRAWS LEFT FOOT TO PAINFUL STIMULI. NO OTHER MOVEMENT TO EXTREMITES. PROPOFOL RESTARTED, FENTANYL FOR PAIN. LEVO GTT FOR MAP>65. AFIB, RATE 100-130'S. TUBE FEEDS AT GOAL VIA DOBHOFF, 68 CM, 45 ML/HR c 30 ML FLUSH q 4 HR. ABD ROUND, SOFT, GRIMACES c PALPATION. HYPOACTIVE BT X 4. INGUNIAL HERNIA NOTED. ARROYO PATENT, DRAINING CLEAR YELLOW URINE TO GRAVITY. CVC TO RIJ, DRESSING C/D/I. REDNESS NOTED TO GROIN. DISCOLORATION TO BILATERAL TOES, L>R. WARM TO TOUCH. WILL CONTINUE TO MONITOR.
--- NOTE | 2021-08-21 14:29 | NUR ---
Pt resting in bed with his eyes closed and intubated. Pt's spouse Deisi at bedside. Offered emotional support and therapeutic listening. Answered questions and reviewed plan of care. Deisi reports considering comfort care but plans to wait until she can bring her son in with her this weekend. Continued therapeutic listening. Deisi expresses appreciation and reports no other concerns at this time. Spoke with Primary RN Shania and discussed case. Palliative Care will remain available.
--- NOTE | 2021-08-21 17:12 | NUR ---
ASSUMED CARE BEDSIDE REPORT FROM JESUS AT 0700. PT IS INTUBATED AND SEDATED. VENT SETTINGS AC/VC+ 18/440/0.68/5/30% LUNGS CLEAR, SCANT SECRETIONS, TACHYPNEIC. COUGH AND GRIMACE NOTED WHILE SUCTIONING, NO GAG REFLEX PRESENT. PT IS TACHYPNIC. PROPOFOL GTT AT 20 MCG/KG/MIN. SEDATION VACATION FOR 35 MINUTES REVEALED THAT PT DOES NOT FOLLOW COMMANDS, GRIMACES W/ CARE/NOXIOUS STIMULI AND WITHDRAWS LEFT FOOT TO NOXIOUS STIMULI. NO OTHER MOVEMENT FROM EXTREMETIES. PT HAS RECEIEVED FENTANYL FOR PAIN. LEVO TITRATED OFF THIS SHIFT. AFIB, HR 100-130. TUBE FEEDS AT GOAL WITH DOBHOFF, INCREASED GOAL RATE TO 50 AND FLUSH 55 ML Q4 ABD ROUND, SOFT. HYPOACTIVE BOWEL TONES IN ALL FOUR QUADRANTS. INGUINAL HERNIA NOTED. ARROYO CATHETER DRAINING CLEAR YELLOW URINE TO GRAVITY. MOIST REDNESS NOTED IN GROIN. PURPLE DISCOLORATION TO BILATERAL TOES. WILL CONTINUE TO MONITOR UNTIL REPORT TO ONCOMING NURSE.
--- NOTE | 2021-08-21 19:30 | NUR ---
Assumed care. Report received from ciro GLASER. Pt in bed, ventilated via ETT. Vent settings: AC/VC 18/440/5/30%. Dobhoff in place, TF running at 50 ml/hr. R/IJ central line in place, IV R/arm. IV pumps running propofol 20 mcg/kg/min, NS 10 ml/hr. Gutierrez catheter in place. SWB restraints in place. VS stable, no acute needs noted at this time. Will continue to monitor.
[2021-08-22 04:19] LABS: Hematocrit 21.5 % (37.0-53.0); Mean Corpuscular HGB 31.1 pg (26.0-34.0); Mean Corpuscular HGB Conc 32.6 g/dL (31.5-36.5); Mean Corpuscular Volume 96 fL (80-100); Mean Platelet Volume 11.9 fL (9.1-12.4); NRBC ABSOLUTE 0.21 K/mm3 (0.00-0.02); NRBC Auto 3.2 /100 WBC (0.0-0.2); Platelet Count 56 K/mm3 (150-400); RDW Coefficient Variation 20.9 % (11.7-14.2); RDW Standard Deviation 70.6 fL (35.1-46.3); Red Blood Cell Count 2.25 M/mm3 (4.30-5.90); White Blood Cell Count 6.62 K/mm3 (4.00-11.30)
[2021-08-22 04:38] LABS: Alanine Aminotransfer (ALT/SGP 51 U/L (12-78); Albumin, Blood 1.7 g/dL (3.4-5.0); Albumin/Globulin Ratio 0.5 (0.8-1.8); Alk Phos 117 U/L (50-136); Anion Gap 13 mmol/L (6-16); Aspartate Aminotrans (AST/SGOT 47 U/L (12-37); Bilirubin, Total 0.6 mg/dL (0.1-1.0); Blood Urea Nitrogen 141 mg/dL (8-24); CO2, Blood 17 mmol/L (21-32); Calcium, Blood 8.1 mg/dL (8.5-10.1); Chloride, Blood 119 mmol/L (98-108); Creatinine, Blood 2.31 mg/dL (0.60-1.20); Ferritin, Serum 615 ng/mL (26-388); Globulin, Blood 3.4 g/dL (2.2-4.0); Glomerular Filtration Rate 27 (60-); Glucose, Blood 364 mg/dL (70-99); Iron Serum 57 ug/dL (65-175); Potassium, Blood 3.5 mmol/L (3.5-5.5); Sodium, Blood 149 mmol/L (136-145); Total Iron Binding Capacity 146 ug/dL (250-450); Total Protein, Blood 5.1 g/dL (6.4-8.2); Vancomycin, Random 24.4 ug/mL
--- NOTE | 2021-08-22 05:51 | NUR ---
Shift summary. Pt continues in bed, sedated and ventilated. Vent settings unchanged this shift. TF running at 50 ml/hr. IV pumps running propofol 20 mcg/kg/min, insulin 6 units/hr, NS 10 ml/hr. Insulin drip started per Dr. Garcia for BG level above 350. Gutierrez catheter in place, 700 mls out this shift. VS stable, see shift assessment for further details. Will continue to monitor and report off to dayshift RN.
--- NOTE | 2021-08-22 17:28 | NUR ---
SHIFT SUMMARY NO ACUTE CHANGES THIS SHIFT. PT REMAINS INTUBATED AND SEDATED. VENT SETTINGS UNCHANGED AND REMAIN AT AC 14, TV 440, PEEP 5, FIO2 30%. PT WITH MINIMAL ETT AND ORAL SECRETIONS WITH SUCTION. CENTRAL LINE IN PLACE WITH PROPOFOL INFUSING AT 20 MCG/KG/MIN, NS TKO, AND 1/2 NS 100 ML/HR. INSULIN GTT ON STANDBY AT THIS TIME. DOBHOFF REMAINS IN PLACE WITH TF INFUSING AT GOAL RATE. ARROYO TEMP PROBE REMAINS IN PLACE WITH DARK YELLOW OUTPUT NOTED. SKIN REMAINS UNCHANGED. PT REMAINS UNRESPONSIVE TO VERBAL STIMULI AND DOES NOT WITHDRAW EXTREMITIES TO NOXIOUS STIMULI. NO COUGH OR GAG NOTED. PT GRIMMACES WITH ORAL CARE. PT SPOUSE AT BEDSIDE FOR SHORT PERIOD THIS AFTERNOON. VITAL SIGNS STABLE. WILL CONTINUE TO MONITOR AND REPORT OFF TO ONCOMING RN.
--- NOTE | 2021-08-22 19:34 | NUR ---
Assumed care. Report received from ciro GLASER. Pt in bed, sedated and ventilated via ETT. Vent settings: AC/VC 18/440/5/30%. Dobhoff in place, TF running at 50 ml/hr. R/IJ central line in place, IV access in R/upper arm. IV pumps runnin/2 NS at 100 ml/hr, propofol 20 mcg/kg/min, NS 10 ml/hr. Gutierrez catheter in place. VS stable, no acute needs at this time, will continue to monitor.
[2021-08-23 04:20] LABS: Hematocrit 21.2 % (37.0-53.0); Hemoglobin 6.7 g/dL (13.5-17.5); Mean Corpuscular HGB 30.9 pg (26.0-34.0); Mean Corpuscular HGB Conc 31.6 g/dL (31.5-36.5); Mean Corpuscular Volume 98 fL (80-100); Mean Platelet Volume 12.5 fL (9.1-12.4); NRBC ABSOLUTE 0.22 K/mm3 (0.00-0.02); NRBC Auto 2.1 /100 WBC (0.0-0.2); Platelet Count 60 K/mm3 (150-400); RDW Coefficient Variation 21.8 % (11.7-14.2); RDW Standard Deviation 75.8 fL (35.1-46.3); Red Blood Cell Count 2.17 M/mm3 (4.30-5.90); White Blood Cell Count 10.73 K/mm3 (4.00-11.30)
[2021-08-23 04:40] LABS: Albumin, Blood 1.6 g/dL (3.4-5.0); Albumin/Globulin Ratio 0.5 (0.8-1.8); Bilirubin, Total 0.8 mg/dL (0.1-1.0); Calcium, Blood 8.3 mg/dL (8.5-10.1); Creatinine, Blood 2.77 mg/dL (0.60-1.20); Globulin, Blood 3.5 g/dL (2.2-4.0); Magnesium, Blood 2.8 mg/dL (1.6-2.4); Phosphorus, Blood 3.2 mg/dL (2.5-4.9); Potassium, Blood 4.5 mmol/L (3.5-5.5); Total Protein, Blood 5.1 g/dL (6.4-8.2)
[2021-08-23 05:03] LABS: Bun/Creatinine Ratio 54.9 (12.0-20.0)
--- NOTE | 2021-08-23 06:40 | NUR ---
Shift summary. Pt continues in bed, sedated and ventilated. Vent settings unchanged this shift. 1/2 NS running at 100 ml/hr, propofol 20 mcg/kg/min, levophed 2 mcg/min, NS TKO. TF at 50 ml/hr. Gutierrez catheter in place, 300 out this shift. 1 unit PRBCs ordered this am for low H&H. See shift assessment for further details, will continue to monitor and report off to dayshift RN.
--- NOTE | 2021-08-23 11:16 | NUR ---
TF ON STANDBY PT VOMITING TF. LARGE AMOUNT SUCTIONED FROM ORAL CAVITY. TUBE FEEDS PLACED ON STANDBY. NOTIFIED DR RIBEIRO.
--- NOTE | 2021-08-23 17:11 | NUR ---
SHIFT SUMMARY NO ACUTE CHANGES THIS SHIFT. PT REMAINS INTUBATED AND NOT SEDATED. PROPOFOL ON STANDBY THIS SHIFT WITHOUT ANY IMPROVEMENTS IN NEURO STATUS. PT REMAINS UNRESPONSIVE TO NOXIOUS STIMULI AND DOES NOT MAKE ANY PURPOSEFUL MOVEMENTS. VENT SETTINGS AC 18, TV 440, PEEP 5, FIO2 40%. PT WITH SMALL AMOUNT OF BLOODY ORAL SECRETIONS NOTED WITH ORAL CARE. TF REMAINS ON STANDBY. CENTRAL LINE REMAINS IN PLACE WITH 1/2 NS INFUSING AT 100 ML/HR AND NS TKO. LEVOPHED TITRATED BETWEEN STANDBY AND 4 MCG/MIN THIS SHIFT. ARROYO TEMP PROBE REMAINS IN PLACE WITH SMALL AMOUNT OF DARK YELLOW URINE OUTPUT NOTED. SKIN ASSESSMENT REMAINS UNCHANGED. PT SPOUSE AT BEDSIDE FOR SHORT TIME THIS AFTERNOON AND UPDATED TO PT CONDITION. WILL CONTINUE TO MONITOR AND REPORT OFF TO ONCOMING RN.
--- NOTE | 2021-08-23 19:15 | NUR ---
ASSUMPTION OF CARE NOTE: PT IS IN AFIB RVR, AMIODORONE BOLUS AND INFUSION ORDERED. PT IS TACHYPNIC WITH RR IN THE 40'S. PT ASPIRATED DURING PRIOR SHIFT, I SUCTION PT VIA INLINE ENDOTRACHEAL AND RECOVERED BEIGE/BLOODY SECRETIONS, THICK OF MODERATE AMOUNT. PT IS FEBRILE WITH TEMP OF 101.1. LEVOPHED IS ON HOLD AT THIS TIME. OXYGEN SAT >90%.
--- NOTE | 2021-08-23 19:45 | NUR ---
AMIODORONE BOLUS GIVEN AND INFUSION STARTED. PT GIVEN TYLENOL PER MD ORDER FOR FEVER AND ICE PACKS PLACED ON BILATERAL FEMORAL ARTERIES. PT WAS GRIMICING AND BITING TUBE, FENTANYL GIVEN. PT MAP DROPPED BELOW 65, LEVOPHED INFUSION RESTARTED.
[2021-08-24 04:21] LABS: BASOPHILS ABSOLUTE AUTO 0.03 K/mm3 (0.00-0.23); BASOPHILS PERCENT AUTO 0 % (0-2); Hemoglobin 7.7 g/dL (13.5-17.5); Mean Corpuscular HGB 30.6 pg (26.0-34.0); Mean Corpuscular HGB Conc 32.1 g/dL (31.5-36.5); Mean Corpuscular Volume 95 fL (80-100); NRBC ABSOLUTE 0.34 K/mm3 (0.00-0.02); NRBC Auto 2.6 /100 WBC (0.0-0.2); Platelet Count 64 K/mm3 (150-400); RDW Coefficient Variation 22.3 % (11.7-14.2); RDW Standard Deviation 75.3 fL (35.1-46.3); Red Blood Cell Count 2.52 M/mm3 (4.30-5.90); White Blood Cell Count 12.88 K/mm3 (4.00-11.30)
[2021-08-24 04:31] LABS: EOSINOPHILS ABSOLUTE AUTO 0.01 K/mm3 (0.00-0.68); EOSINOPHILS PERCENT AUTO 0 % (0-6); IMMATURE GRAN ABSOLUTE AUTO 0.65 K/mm3 (0.00-0.10); IMMATURE GRAN PERCENT AUTO 5 % (0-1); LYMPHOCYTES ABSOLUTE AUTO 0.04 K/mm3 (0.84-5.20); LYMPHOCYTES PERCENT AUTO 0 % (21-46); MONOCYTES ABSOLUTE AUTO 0.43 K/mm3 (0.16-1.47); MONOCYTES PERCENT AUTO 3 % (4-13); NEUTROPHILS ABSOLUTE AUTO 11.72 K/mm3 (1.96-9.15); NEUTROPHILS PERCENT AUTO 91 % (41-73)
[2021-08-24 04:37] LABS: Magnesium, Blood 3.2 mg/dL (1.6-2.4)
[2021-08-24 04:45] LABS: Bun/Creatinine Ratio 57.9 (12.0-20.0); Calcium, Blood 8.5 mg/dL (8.5-10.1); Creatinine, Blood 3.11 mg/dL (0.60-1.20); Phosphorus, Blood 5.7 mg/dL (2.5-4.9); Potassium, Blood 5.2 mmol/L (3.5-5.5)
[2021-08-24 05:30] LABS: BAND PERCENT MAN 3 % (0-8); BASOPHILS PERCENT MAN 0 % (0-2); EOSINOPHILS PERCENT MAN 0 % (0-6); LYMPHOCYTES ABSOLUTE MAN 0.12 K/mm3 (0.84-5.20); LYMPHOCYTES PERCENT MAN 1 % (21-46); MONOCYTES ABSOLUTE MAN 0.64 K/mm3 (0.16-1.47); MONOCYTES PERCENT MAN 5 % (4-13); MYELOCYTE ABSOLUTE MAN 0.25 K/mm3 (0.00-0.00); MYELOCYTE PERCENT MAN 2 % (0-0); NEUTROPHILS ABSOLUTE MAN 11.84 K/mm3 (1.96-9.15); SEG NEUTROPHILS PERCENT MAN 89 % (41-73); TOTAL CELLS COUNTED 100
--- NOTE | 2021-08-24 05:45 | NUR ---
SHIFT SUMMERY PT CONTINUES ON AMIODORONE INFUSION, AFIB ON THE MONITOR. LEVOPHED ON HOLD AT THIS TIME. LARGE BLACK LIQUID STOOL X 1, PT HAD MODERATE AMOUNT OF VOMIT MIXED WITH SALIVA WHEN TURNED TO BE CLEANED/BATHED. PT WILL GRIMACE TO PAIN/STIMULI BUT NO PURPOSEFUL MOVEMENT. OXYGEN LEVELS 97% AT TIME OF NOTE.
--- NOTE | 2021-08-24 15:38 | NUR ---
COMFORT CARE PT FAMILY AT BEDSIDE, DISCUSSED PLAN OF CARE WITH DR RIBEIRO AND ANKIT PALLIATIVE CARE RN. DECISION MADE TO EXTUBATE TO COMFORT CARE. PT PRE MEDICATED WITH 5 MG IV MORPHINE, THEN EXTUBATED BY RT AT 1520. PT WITH LABORED RESPIRATIONS AND AIR HUNGER NOTED. PT MEDICATED WITH AN ADDITIONAL 5 MG IV MORPHINE. PT FAMILY AT BEDSIDE AT THIS TIME. PT APPEARS COMFORTABLE WITH DECREASED AIR HUNGER AT THIS TIME. WILL CONTINUE TO MONITOR.
--- NOTE | 2021-08-24 17:30 | NUR ---
SHIFT SUMMARY PT MADE COMFORT CARE THIS AFTERNOON. PT FAMILY AT BEDSIDE BEFORE AND AFTER EXTUBATION. PT APPEARS COMFORTABLE AT THIS TIME. NO FAMILY AT BEDSIDE AT THIS TIME. CENTRAL LINE REMAINS C/D/I, SALINE LOCKED TO RIGHT IJ. ARROYO REMAINS IN PLACE. SEE PREVIOUS NOTE FOR MORE INFO. WILL CONTINUE TO MONITOR AND REPORT OFF TO ONCOMING RN.
--- NOTE | 2021-08-24 19:15 | NUR ---
pt still on vent now needing amiodarone to control rate. Dr Garcia spoke with about prognosis and withdrawing care. She is struggling with making the choice. Called to review process. Slowly and carefully reviewed with and son pt medication needs to control his cardiac function and hemodynamics. Reviewed lack of sedation and he is not fighting ventilator. Pt has some movement and trying to open eyes is hard for pt. after careful discussion with son they agreed he would not want to be recusitated and further. espressed some sadness at letting them do cpr. pt placed oncomfort with prayer blanket. care withdrawn family stayed for ahwile. They had to leave will update family on progress pt non responsive . Sats trending down. pt placed on side for better airway mangment. will monitor for medication support. Reviewed [facility] homes with .
--- NOTE | 2021-08-24 22:12 | NUR ---
REPORT CALLED TO LIZBETH ON MEDICAL FLOOR. PT BEING TRANSFERRED TO ROOM 310. I CALLED AND UPDATED HER ON PT STATUS AND NEW ROOM NUMBER.
--- NOTE | 2021-08-25 06:38 | NUR ---
PT WAS TRANSFERED FROM ICU05 TO 310 AT 2236, ON COMFORT CARE. UNRESPONSIVE. NO S/S OF PAIN OR DISTRESS. PT WAS FOUND AT 0405. CHARGE NURSE, NURSING SUPERVISOR OF INSTRUCTION AND HOSPITALIST DR CONTI NOTIFIED. PATIENT'S NOTIFIED. SHE STATED SHE DID NOT WANT TO COME IN THIS AM, AND DID NOT HAVE A HOME CHOSEN. [facility] [facility] NOTIFIED AND PICKED THE BODY UP.
== END 2021-08-25 04:05 | DRG 870 ==
LOC: ER 15:49 → ICUW 20:28 → ICUE 20:54 → MEDS 08-24 22:32
PROVIDERS: Emergency Medicine; Internal Medicine; Internal Medicine Critical Care Medicine; Nurse Practitioner Acute Care; ADMIT Internal Medicine
PROC: 0BH17EZ Insertion of Endotracheal Airway into Trachea, Via Natural or Artificial Opening (ICD-10-PCS; principal; 2021-08-16)
PROC: 5A1955Z Respiratory Ventilation, Greater than 96 Consecutive Hours (ICD-10-PCS; 2021-08-16)
PROC: 5A12012 Performance of Cardiac Output, Single, Manual (ICD-10-PCS; 2021-08-16)
PROC: 02HV33Z Insertion of Infusion Device into Superior Vena Cava, Percutaneous Approach (ICD-10-PCS; 2021-08-16)
PROC: 3E033XZ Introduction of Vasopressor into Peripheral Vein, Percutaneous Approach (ICD-10-PCS; 2021-08-16)
DX: A41.9 Sepsis, unspecified organism (principal); J96.01 Acute respiratory failure with hypoxia; J18.9 Pneumonia, unspecified organism; J96.02 Acute respiratory failure with hypercapnia; R65.21 Severe sepsis with septic shock; N17.9 Acute kidney failure, unspecified; E87.1 Hypo-osmolality and hyponatremia; G93.1 Anoxic brain damage, not elsewhere classified; E87.0 Hyperosmolality and hypernatremia; I48.20 Chronic atrial fibrillation, unspecified; E87.2 Acidosis; C15.9 Malignant neoplasm of esophagus, unspecified; Z66 Do not resuscitate; I46.8 Cardiac arrest due to other underlying condition; E87.6 Hypokalemia; I70.223 Atherosclerosis of native arteries of extremities with rest pain, bilateral legs; Z51.5 Encounter for palliative care; Z92.21 Personal history of antineoplastic chemotherapy; I27.20 Pulmonary hypertension, unspecified; Z95.1 Presence of aortocoronary bypass graft; Z98.890 Other specified postprocedural states; E11.65 Type 2 diabetes mellitus with hyperglycemia; G30.9 Alzheimer's disease, unspecified; F02.80 Dementia in other diseases classified elsewhere, unspecified severity, without behavioral disturbance, psychotic disturbance, mood disturbance, and anxiety; D64.9 Anemia, unspecified; Z87.891 Personal history of nicotine dependence; Z78.1 Physical restraint status; Z20.822 Contact with and (suspected) exposure to COVID-19
CPT/HCPCS: 0241U; 31500; 36415; 36430; 36556; 36600; 51702; 70450; 71045; 71260; 74018; 74177; 80048; 80053; 80202; 81001; 82550; 82553; 82728; 82803; 82947; 83540; 83550; 83605; 83690; 83735; 83880; 84100; 84132; 84484; 85025; 85027; 86850; 86900; 86901; 86923; 87040; 87070; 87205; 93005; 93010; 93306; 94002; 94003; 96365; 96366; 96368; 96375; 99285-25; A9270; C1751; C9113; G0480; J0282; J0692; J1644; J1815; J2060; J2250; J2270; J2370; J2543; J2704; J3010; J3370; J7030; J7040; J7050; J7060; J7120; P9016; P9046; Q9967